=== PATIENT | male | born 1985 | race African-American/Black ===

== ENCOUNTER 2017-07-06 09:06 | Emergency (ER) | payer OTHER ==
[~2017-07-06] VITALS: Ht 193 cm; Wt 140.6 kg
[~2017-07-06 09:06] MED LIST: AMOXIL500 MG PO; ANAPROX DS550 MG PO; BACTRIM DS 8001 TA1 PO; BACTROBAN2% TP; CIPRO500 MG PO; ULTRAM50 MG PO; ZANTAC150 MG PO
[2017-07-06 10:00] LABS: BILIRUBIN NEGATIVE (NEGATIVE); BLOOD NEGATIVE (NEGATIVE); CLARITY SL CLOUDY (CLEAR); COLOR YELLOW (YELLOW); GLUCOSE NEGATIVE (NEGATIVE); KETONE NEGATIVE (NEGATIVE); LEUKO ESTERASE NEGATIVE (NEGATIVE); NITRITE NEGATIVE (NEGATIVE); PH 6.5 (5.0-9.0); SPECIFIC GRAVITY 1.015 (1.005-1.030); UROBILINOGEN 0.2 E.U./dl (0.2-1.0)
[2017-07-06 10:13] LABS: BACTERIA 1+; MUCOUS 2+
[2017-07-06 10:53] LABS: BASO % 0.8 % (0.0-1.0); EOS # 0.1 10*3/uL (0.0-0.4); EOS % 1.9 % (1.0-4.0); HEMATOCRIT 46.7 % (42.0-52.0); LYMPH # 1.7 10*3/uL (1.3-4.4); LYMPH % 32.8 % (27.0-41.0); MEAN CELL VOLUME 93.8 fl (80.0-94.0); MEAN CORPUSCULAR HGB 32.1 pg (27.0-31.0); MEAN CORPUSCULAR HGB CONC 34.3 g/dl (33.0-37.0); MEAN PLATELET VOLUME 10.2 fl (9.6-12.3); MONO # 0.4 10*3/uL (0.1-1.0); NEUT % 57.3 % (47.0-73.0); PLATELET COUNT AUTOMATED 290 10*3/uL (130-400); RED BLOOD COUNT 4.98 10*6/uL (4.50-5.90); RED CELL DISTRI WIDTH 12.2 % (0-14.5); WHITE BLOOD COUNT 5.2 10*3/uL (4.8-10.8)
[2017-07-06 11:04] LABS: ACT PARTIAL THROMBO TIME 25.5 SECONDS (20.8-31.5)
[2017-07-06 11:10] LABS: ALKALINE PHOSPHATASE 69 U/L (45-117); BUN 8 mg/dl (7-24); CHLORIDE 106 mmol/L (98-107); CREATININE 1.15 mg/dL (0.70-1.30); POTASSIUM 3.8 mmol/L (3.5-5.1); SGOT/AST 48 IU/L (3-35); SGPT/ALT 47 U/L (12-78); SODIUM 140 mmol/L (136-145); TOTAL PROTEIN 8.4 gm/dL (6.4-8.2)
[2017-07-06] MEDS ORDERED: CHLORZOXAZONE500 M2 PO (12:03)
[2017-07-06] MEDS ORDERED: NAPROSYN500 MG PO (12:03)
== END 2017-07-06 12:24 | disposition home or self-care (01) ==
LOC: ED 09:06
PROVIDERS: Nurse Practitioner Family
DX: S61.412A Laceration without foreign body of left hand, initial encounter (principal); R20.2 Paresthesia of skin; R03.0 Elevated blood-pressure reading, without diagnosis of hypertension; V89.2XXA Person injured in unspecified motor-vehicle accident, traffic, initial encounter; Y93.89 Activity, other specified; Y92.89 Other specified places as the place of occurrence of the external cause; Y99.8 Other external cause status

== ENCOUNTER 2017-11-27 20:19 | Emergency (ER) | payer OTHER ==
[~2017-11-27] VITALS: Ht 195.5 cm; Wt 147.4 kg
--- NOTE | ~2017-11-27 | EKG ---
[place], [place] ELECTROCARDIOGRAM REPORT NAME: NICKI COBB UNIT #: [id number] ROOM: DOCTOR: JENNIFER SMALLS MD BIRTHDATE: [birth year] DOS: 11/27/2017 TIME: 2101 hours. FINDINGS: 1. Normal sinus rhythm with 91 beats per minute. 2. The tracing is normal. 3. No previous tracing is available for comparison. JENNIFER SMALLS MD CM:EKGRPT:ELECTROCARDIOGRAM REPORT [id number] JENNIFER SMALLS MD
[~2017-11-27 20:19] MED LIST changes: +CHLORZOXAZONE500 M2 PO; +NAPROSYN500 MG PO
[2017-11-27 21:24] LABS: ALBUMIN 3.5 gm/dl (3.1-4.5); ALKALINE PHOSPHATASE 84 U/L (45-117); BUN 8 mg/dl (7-24); CHLORIDE 108 mmol/L (98-107); CREATININE 1.23 mg/dL (0.70-1.30); LIPASE 100 U/L (73-393); POTASSIUM 4.2 mmol/L (3.5-5.1); SGOT/AST 36 IU/L (3-35); SGPT/ALT 45 U/L (12-78); SODIUM 139 mmol/L (136-145)
[2017-11-27 21:27] LABS: TROPONIN I < 0.015 ng/ml (<0.045)
[2017-11-27 22:09] LABS: BASO # 0.1 10*3/uL (0.0-0.1); BASO % 0.8 % (0.0-1.0); EOS # 0.3 10*3/uL (0.0-0.4); EOS % 4.7 % (1.0-4.0); HEMOGLOBIN 14.5 g/dl (14.0-18.0); LYMPH # 3.3 10*3/uL (1.3-4.4); LYMPH % 51.3 % (27.0-41.0); MEAN CELL VOLUME 97.8 fl (80.0-94.0); MEAN CORPUSCULAR HGB 32.2 pg (27.0-31.0); MEAN PLATELET VOLUME 11.1 fl (9.6-12.3); MONO # 0.5 10*3/uL (0.1-1.0); MONO % 8.1 % (3.0-9.0); NEUT # 2.2 10*3/uL (2.3-7.9); NEUT % 34.9 % (47.0-73.0); PLATELET COUNT AUTOMATED 253 10*3/uL (130-400); RED CELL DISTRI WIDTH 12.3 % (0-14.5); WHITE BLOOD COUNT 6.4 10*3/uL (4.8-10.8)
== END 2017-11-27 22:16 | disposition home or self-care (01) ==
LOC: ED 20:19
PROVIDERS: Student in an Organized Health Care Education/Training Program
DX: R07.89 Other chest pain (principal); R10.10 Upper abdominal pain, unspecified

== ENCOUNTER → 2017-11-30 | Outpatient (CLI) | payer OTHER ==
[2017-11-30 08:35] LABS: THYROID STIM HORMONE (HS) 3.23 uIU/ml (0.358-4.75)
[2017-12-01 06:09] LABS: LUTEINIZING HORMONE 004283 5.7 mIU/mL (1.7-8.6); PROLACTIN 004465 17.8 ng/mL (4.0-15.2)
[2017-12-01 21:07] LABS: TESTOSTERONE FREE, (DIRECT) 12.8 pg/mL (8.7-25.1)
== END | disposition home or self-care (01) ==
LOC: LAB 07:03
PROVIDERS: Urology
DX: E29.1 Testicular hypofunction (principal); N42.9 Disorder of prostate, unspecified

== ENCOUNTER 2019-08-07 20:59 | Emergency (ER) | payer OTHER ==
[~2019-08-07] VITALS: Ht 195.5 cm; Wt 145.1 kg
[2019-08-08] MEDS ORDERED: IBU600 M1 PO (00:21)
== END 2019-08-08 00:31 | disposition home or self-care (01) ==
LOC: ED 20:59
DX: S66.911A Strain of unspecified muscle, fascia and tendon at wrist and hand level, right hand, initial encounter (principal); S30.0XXA Contusion of lower back and pelvis, initial encounter; M25.512 Pain in left shoulder; M79.605 Pain in left leg; Z88.0 Allergy status to penicillin; V49.69XA Unspecified car occupant injured in collision with other motor vehicles in traffic accident, initial encounter; Y93.89 Activity, other specified; Y92.89 Other specified places as the place of occurrence of the external cause; Y99.8 Other external cause status

== ENCOUNTER 2023-09-10 17:14 | Emergency (ER) | payer OTHER ==
[~2023-09-10] VITALS: Ht 195.5 cm; Wt 149.7 kg
[~2023-09-10 17:14] MED LIST changes: +IBU600 M1 PO
[2023-09-10 18:48] LABS: BASO % 0.6 % (0.0-1.0); EOS # 0.3 10*3/uL (0.0-0.4); EOS % 4.7 % (1.0-4.0); HEMATOCRIT 47.2 % (42.0-52.0); LYMPH # 2.9 10*3/uL (1.3-4.4); MEAN CELL VOLUME 98.7 fl (80.0-94.0); MEAN CORPUSCULAR HGB 32.8 pg (27.0-31.0); MEAN CORPUSCULAR HGB CONC 33.3 g/dl (33.0-37.0); MEAN PLATELET VOLUME 9.6 fl (9.6-12.3); MONO # 0.4 10*3/uL (0.1-1.0); MONO % 8.3 % (3.0-9.0); NEUT # 1.7 10*3/uL (2.3-7.9); NEUT % 31.4 % (47.0-73.0); PLATELET COUNT AUTOMATED 272 10*3/uL (130-400); RED BLOOD COUNT 4.78 10*6/uL (4.50-5.90); RED CELL DISTRI WIDTH 12.2 % (0-14.5); WHITE BLOOD COUNT 5.3 10*3/uL (4.8-10.8)
[2023-09-10 18:59] LABS: ACT PARTIAL THROMBO TIME 30.1 SECONDS (20.0-32.1)
[2023-09-10 19:10] LABS: ALKALINE PHOSPHATASE 60 U/L (46-116); BUN 7 mg/dl (9-23); CHLORIDE 106 mmol/L (98-107); POTASSIUM 3.8 mmol/L (3.4-5.1); SGPT/ALT 32 U/L (5-49); TOTAL PROTEIN 7.9 gm/dL (6.0-8.0)
[2023-09-10] MEDS ORDERED: PREDNISONE20 M1 PO (20:31)
[2023-09-10] MEDS ORDERED: methylPREDNISolone sod succ 125 MG VIAL IM ONE (20:35)
== END 2023-09-10 20:57 | disposition home or self-care (01) ==
LOC: ED 17:14
PROVIDERS: Nurse Practitioner Family
DX: R07.89 Other chest pain (principal); R07.1 Chest pain on breathing; Z88.0 Allergy status to penicillin